=== PATIENT | male | born 2005 | race Caucasian/White ===

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

== ENCOUNTER 2024-09-10 15:46 | Emergency (ER) | payer OTHER, SELFPAY ==
[2024-09-10 15:46] VITALS: BP 146/77; PULSE 77; RESP 18; TEMP 36.4; O2SAT 99; BMI 24.7
--- NOTE | 2024-09-10 16:03 | EX.ED.VIS.EY ---
HPI History of Present Illness Chief Complaint: Eye Problem Informant: patient Narrative Narrative: Sent from urgent care concerns for metal to the left eye. Patient dates occurred at work yesterday. He took a safety goggles briefly another coworker was grinding when it to his eye. Similar issue a year ago had rust ring which required removal from eye doctor. He wears contacts however none currently. He has near vision. Reports there was attempted removal Q-tip after numbness at urgent care. Prior similar symptoms: Yes PFSH PFSH Medical History Acute pharyngitis, unspecified Medical History no medical history Allergy/AdvReac Type Severity Reaction Status Date / Time No Known Allergies Allergy Verified 09/10/24 15:46 Family History no significant family his Surgical History no surgical history Social History Smoking Status: Never smoker ROS ROS ED Constitutional Constitutional ED: Denies fever(s) Eyes Eyes: Reports blurry vision Cardiovascular Cardiovascular: Denies chest pain Respiratory/Chest Respiratory/Chest: Denies cough Gastrointestinal Gastrointestinal: Denies diarrhea or vomiting Musculoskeletal Musculoskeletal: Denies none Integumentary Denies rash or wounds Neurologic Neurologic: Denies weakness EXAM Physical Exam Const Vital Signs: 09/10/24 15:46 Temperature 97.6 F L Temperature Source Oral Pulse Rate 77 Respiratory Rate 18 Blood Pressure 146/77 H Blood Pressure Mean 100 Pulse Ox 99 Positive well nourished and well developed General Appearance ED: well developed HEENT normocephalic and atraumatic Eyes Eyes Narrative: Patient has acuity 20/25 OU, 20/30 OD, 20/30 OS. Moist Q-tip when on the lid margins eyelid everted no foreign bodies noted. Slit-lamp examination noted corneal defect mid cornea towards 9 o'clock position with no residual rust ring. General Eye ED: Yes normal appearance of both eyes Neck full ROM Resp normal respiratory effort and normal air movement Cardio regular rate and regular rhythm GI soft to palpation Extremity normal to inspection and full ROM Neuro oriented x3 Skin no rashes or lesions noted and no wounds MDM MDM MDM Narrative Medical decision making narrative: Interventions / MDM: Differential diagnosis: Residual rust ring left cornea, corneal abrasion Diagnosis considered but do not suspect: N/A My EKG interpretation: N/A Imaging independently reviewed and interpreted by myself: N/A External documents reviewed: N/A Test considered but not ordered:N/A ED course: Nontoxic vision acuity stable. Slit-lamp examination appears corneal defect from removal of foreign body there is residual rust ring near the 9 o'clock position mid cornea. Started on your erythromycin ointment twice a day. Referred to ophthalmology for further treatment with his rust ring. All questions were answered. Re-evaluation: stable Disposition discussed with patient/family/significant other: Patient Case discussed with consulting clinician: N/A This note was generated with [employer] dictation software. It may contain incorrect words, spelling, and punctuation that were not noted in checking the note before signing. Discharge Plan Triage Chief Complaint: Eye Problem ED Provider: Kasi Tobar Dx/Rx/DC Orders Clinical Impression: Corneal rust ring of left eye, Abrasion, corneal, Corneal foreign body with residual material Instructions: ED Corneal Abrasion, ED RUST RING Primary Care Provider: Care Physician,No Primary Referrals: Geoffrey Johnston MD [Med Staff - Active Staff] - 2 Days NOT,DEFINED [Non-Staff] - Activity Restrictions/Additional Instructions: You have residual rust ring evaluated with abrasion from procedure at urgent care. Use antibiotic ointment twice a day call for follow-up on Thursday with ophthalmology for additional treatment for your residual rust ring. Print Language: Nigerian Disposition Disposition: Home, Self Care Discharge Date/Time: 09/10/24 16:33
[2024-09-10] MEDS: Erythromycin Ophthalmic (NSY) 1 GM OPTH.TUBE 1 APPLIC LEFT EYE (16:28)
[2024-09-10 16:33] VITALS: BP 146/77; PULSE 77; RESP 18; TEMP 36.4; O2SAT 99
--- OUTSIDE RECORDS SUMMARY | 2024-09-10 16:34 | XMS RPT_ITS | CCD ---
Author Organization [facility] Care Team Providers Care Pmo Consultant Name Role Phone Parrish Belcher Attending Floyd Tomas Attending Parrish Grande Attending PARRISH Moraes MD Primary Care Physician DR MARIA DOLORES STOUT DO Attending PARRISH Gutierrez MD Primary Care Unavailable PARRISH VASQUEZ MD Primary Care Unavailable DR MARIA DOLORES STOUT DO Attending Jordin holloway Problems Active Problems Problem Classification Problem Date Documented Da te Episodic/Chronic Disorders usually diagnosed in infancy, childhood, or adolescence (2 sources) Chronic motor tic disorder Onset: 11-11-2012 10-29-2018 Chronic Unclassified (2 sources) Child examination finding Onset: 09-30-2010 10-29-2018 Past or Other Problems Problem Classification Problem Date Documented Da te Episodic/Chronic Malaise and fatigue (1 source) Other fatigue; Translations: [R53.83 - Other fatigue] Onset: 2021 Episodic Other upper respiratory infections (1 source) Acute pharyngitis, unspecified; Translations: [J02.9 - Acute pharyngitis, unspecified] Onset: 2021 Episodic Results Test Name Value Interpretation Reference Range Facil ity XR FOOT MINIMUM 3 VIEWS LEFT on 02-18-2023 XR FOOT MINIMUM 3 VIEWS LEFT ORIGINAL EXAMINATION: THREE XRAY VIEWS OF THE LEFT FOOT02/16/2023 6:38 pm COMPARISON: None available HISTORY: ORDERING SYSTEM PROVIDED HISTORY: Reason for Exam: left foot pain FINDINGS: No acute fracture or dislocation is identified. Bony alignment is maintained. The joint spaces are maintained. No suspicious osseous lesions. No large volume joint effusion. The soft tissues are unremarkable. IMPRESSION: No acute radiographic findings. I have personally reviewed the images of this examination and agree with the resident's findings and interpretation. Interpreted by: Bethel Delgado MD Preliminary Report By: Lissett Broderick Electronically signed By Bethel Delgado MD Dictated Date: 02/18/2023 8:49:38 AM Prelim Date: 02/18/2023 8:59:10 AM Sign Date: 02/18/2023 8:59:10 AM Ordering Provider: MARIA DOLORES Serna [facility]) XR ANKLE MINIMUM 3 VIEWS LEF Ton 02-16-2023 XR ANKLE MINIMUM 3 VIEWS LEFT ORIGINAL EXAMINATION: THREE XRAY VIEWS OF THE LEFT ANKLE 02/16/2023 4:01 pm COMPARISON: None. HISTORY: ORDERING SYSTEM PROVIDED HISTORY: Reason for Exam: pain FINDINGS: The left ankle mortise is preserved. No acute fracture, dislocation or radiopaque foreign bodies are seen about the left ankle. IMPRESSION: 1. No acute osseous abnormality of the left ankle. Interpreted by: Ham Shelton MD Preliminary Report By: Ham Shelton MD Electronically signed By Ham Shelton MD Dictated Date: 02/16/2023 4:02:33 PM Prelim Date: 02/16/2023 4:02:47 PM Sign Date: 02/16/2023 4:02:47 PM Ordering Provider: MARIA DOLORES STOUT [facility]) Urgent Care Visit Reporton 0 05-02-2022 Urgent Care Visit Report [facility] [address] [place] [address] [address] [place] [id number] OFFICE VISIT Date of Service: 05/02/22 MR#: [id number] Acct: [id number] Name: ENRIQUE STORM Rep #: [id number] : 2005 Provider: SOL Brown Age/Sex: 16/M [place] [facility] Status: Signed Intake Vital Signs 05/02/22 17:29 Height 6 ft 2 in Weight: 184 lb BMI 23.6 BP 130/82 Blood Pressure Location Lt brachial Position Sitting Respiration 15 Pulse 82 Pulse Source Monitor Temp 98.4 F Temp Source Temporal Pulse Oximetry (%) 98 Oxygen Delivery Method room air Intake Visit Reasons: INFECTED TOENAIL LT BIG TOE Allergies No Known Allergies Allergy (Unverified 05/02/22 17:30) Medications cephalexin 500 mg capsule 500 mg PO Q12H 10 days #20 caps 05/02/22 [Rx Confirmed 05/02/22] [facility] Medical History Acute pharyngitis, unspecified HPI HPI Details: ENRIQUE STORM, is a 16 M who presents to the office today for complaint of ingrown toenail left great toe with redness and pain. Patient states that he knowingly cut his toenail too short and then pulled a part of his nail off. He states that the pain has worsened over the past 24 to 36 hours. He denies numbness, tingling or loss range of motion to the toe or foot. No fever, chills, sweats. No nausea, vomiting or diarrhea. No other associated symptoms or alleviating/aggravating factors. ROS Const Constitutional: No other (As above) Exam Const General: cooperative and healthy appearing Skin General: no rashes or lesions noted Neuro General: patient alert and CN's II-XI intact bilaterally Extrem Other: Ingrown toenail on both medial and lateral portion of the left great toe with erythema and soft tissue swelling. No drainage or warmth to palpation. No extending erythema or streaking. Psych Appearance: grossly normal Mental Status: mental status grossly normal Coding Level of Care Code Off vis,est,level 3 Diagnoses Ingrown left greater toenail L60.0 Assessment and Plan Assessment and Plan (1) Ingrown left greater toenail: Status: Acute Medications: New cephalexin 500 mg PO Q12H 10 days 20 caps 0RF Plan Keflex as prescribed today. Patient also advised to use warm Epsom salt soaks and to cut his toenails straight across instead of cutting them as short as possible. Patient advised to follow-up with podiatry in 10 to 14 days if no better or sooner if worse. Patient advised of other symptomatic management techniques as well as potential red flags and when appropriate to report to the ED. Patient verbalized understanding and agreement with all the above. 05/02/22 1809 Date Floyd Davidson Signature: Date (if applicable) CC: Normal [facility] Culture, R/O Strep Aon 05-19 CUSTREPA No Streptococcus manolo up A isolated. Culture, R/O Strep A * This cultures intended use is to screen for Beta Streptococcus A only. All other pathogens and potential pathogens will not be screened for or reported. If a complete workup of all potential pathogens is indicated an order for a routine throat culture is required. Normal [facility] Comment on above: Performed By: #### M100.010 #### [facility] [address] [place], [place], [id number] Urgent Care Visit Reporton 0 05-16-2021 Urgent Care Visit Report [facility] [address] [place] [address] [address] [place], [place] [address] OFFICE VISIT Date of Service: 05/16/21 MR#: [id number] Acct: [id number] Name: ENRIQUE STORM Rep #: [id number] : 2005 Provider: SOL gaytan Age/Sex: 15/M [place] [facility] Status: Signed Intake Vital Signs 05/16/21 08:52 Height 6 ft 2 in Weight: 151 lb BMI 19.3 BP 118/74 Blood Pressure Location Lt brachial Position Sitting Respiration 16 Pulse 78 Pulse Source Monitor Temp 98.6 F Temp Source Temporal Pulse Oximetry (%) 98 Oxygen Delivery Method room air Intake Visit Reasons: SORE THROAT Allergies No Known Allergies Allergy (Unverified 05/16/21 08:53) [facility] Medical History (Updated 05/16/21 @ 10:04 by SOL Galdamez) Acute pharyngitis, unspecified HPI HPI Details: ENRIQUE STORM, is a 15 M who presents to the office today for evaluation of 3 to 4-day history of progressive worsening sore throat, with chills (unknown if having fever), white exudate on tonsillar pillars, swollen anterior cervical lymph nodes, and no cough described by patient. No complaints of headache or myalgias or loss of taste/smell or congestion/runny nose or nausea/vomiting/diarrhea . Mom notes patient has been taking ibuprofen and acetaminophen to assist with symptoms, which she says is rare for him as he typically takes no medication. No other associated symptoms and no other alleviating/aggravating factors. ROS Const Constitutional: No other (As above) Exam Const General: cooperative, healthy appearing, uncomfortable and no acute distress Nutritional Appearance: average body habitus and well nourished Orientation: alert, awake and oriented x3 HENMT Head: normal to inspection Ears: hearing grossly normal bilaterally, external ears normal, TM's normal bilaterally and EAC's normal Nose: external nose normal, nares normal, septum normal and no nasal discharge Face and sinus: normal facial exam and sinuses nontender Mouth: oral mucosae normal, lip normal, tongue normal and moist mucous membranes Throat: posterior oropharynx normal, uvula midline, abnormal tonsil on the right exudates and bilaterally erythema and no postnasal drainage Eyes General: appearance normal, both eyes and all related structures Neck Neck: normal visual inspection, full ROM, no meningeal signs, supple and lymphadenopathy (bilateral anterior cervical node swelling/tender to palpation) Neck mass: No Thyroid: thyroid normal Chest Chest palpation inspection: normal inspection of the chest Resp Effort Inspection: normal respiratory effort, able to speak in complete sentences, symmetric chest movement and no cough Auscultation: Bilateral: Clear to Auscultation Cardio Palpation: normal PMI Rate: regular rate Rhythm: regular rhythm Heart Sounds: S1 normal, S2 normal, no gallops, no murmurs and no rubs Pulses: radial pulses present GI Inspection: normal to inspection Palpation: soft and no hepatosplenomegaly Skin General: no rashes or lesions noted Neuro General: patient alert, patient awake, patient oriented x3 and gait normal Cognition: normal cognition Speech: speech normal Gait: normal gait Motor: muscle tone normal throughout Sensory Exam: no sensory deficits noted Psych Appearance: grossly normal Mental Status: mental status grossly normal Mood: congruent mood Affect: normal affect Speech and Movement: speech and movement normal Attitude: cooperative Thought Process: normal Thought Content: normal Judgment: judgment good Results POC Rapid Strep A Office Rapid Strep A Negative Last Edit by Maura Tony on 05/16/21 08:59 POC Mononucleosis Office Mononucleosis Negative Last Edit by Maura Tony on 05/16/21 09:16 Coding Level of Care Code Off vis,new,level 2 Diagnoses Acute pharyngitis, unspecified J02.9 Assessment and Plan Assessment and Plan (1) Acute pharyngitis, unspecified: Status: Acute Orders: Orders: POC Rapid Strep A Today Culture, R/O Strep A Today Plan - Parrish HORTON PA: POC rapid strep and Monospot screening in office today, both of which were negative; throat culture sent to lab for further evaluation.. Copy of results offered to patient. Supportive measures as instructed today. Follow-up with PCP in 5 to 7 days should symptoms not improve, ED sooner should symptoms worsen or any other concerns develop. Patient states acknowledging understanding all the above. This note was generated with [email or web address] dictation software. It may contain incorrect words, spelling, and punctuation that were not noted in checking the note before signing. Plan Details Other Orders: Orders: POC Mononucleosis Today R53.83 05/16/21 1004 Date (more content not included)... Normal [facility] Encounters Encounter Date Encounter Type Care Provider Facility Start: 02-16-2023 End: 02-17-2023 ambulatory PARRISH VASQUEZ MD Facility:B Start: 02-16-2023 End: 02-16-[address] MARIA DOLORES STOUT DO [facility] Start: 02-16-2023 End: 02-17-[address] MARIA DOLORES STOUT DO Facility:[facility] Start: 02-16-2023 End: 02-16-[address] MARIA DOLORES STOUT DO [facility] Start: 05-02-2022 End: 05-02-2022 ambulatory Floyd [place] [place]: 05-16-2021 End: 05-17-2021 ambulatory Parrish HORTON Facility:[facility] Start: 05-16-2021 End: 05-16-2021 ambulatory Parrish [place] [place]izations Immunization Date Immunization Notes Care Provider Марина swartz 10-18-2021 SARS-CoV-2 mRNA (tozinameran) vaccine DR MARIA DOLORES STOUT DO [facility] Comment on above: Result Comment: Prema Danielson. 0.3mL HERMINIA 11-02-2018 meningococcal oligosaccharide (groups A, C, Y and W-135) diphtheria toxoid conjugate vaccine (MCV4O); Translations: [Menveo] DR MARIA DOLORES STOUT DO [facility] 11-02-2018 tetanus toxoid, redu maurizio diphtheria toxoid, and acellular pertussis vaccine, adsorbed; Translations: [Boostrix (Tdap)] DR MARIA DOLORES STOUT DO [facility] 07-03-2009 diphtheria, tetanus toxoids and acellular pertussis vaccine, unspecified formulation DR MARIA DOLORES STOUT DO [facility] 07-03-2009 measles/mumps/rubell a virus vaccine DR MARIA DOLORES STOUT DO [facility] 07-03-[address], inactivated [address] MARIA DOLORES STOUT DO [facility] 07-03-[address] Ranjith STOUT DO [facility] 03-19-2007 diphtheria, tetanus toxoids and acellular pertussis vaccine, unspecified formulation DR MARIA DOLORES STOUT DO [facility] 03-19-2007 haemophilus influenz ae type b conjugate and Hepatitis B vaccine DR MARIA DOLORES STOUT DO [facility] 03-19-2007 pneumococcal conjuga te vaccine, [address] MARIA DOLORES STOUT DO [facility] 12-22-2006 influenza virus vacc ine, unspecified formulation DR MARIA DOLORES STOUT DO [facility] 12-01-2006 hepatitis A vaccine, pediatric dosage, unspecified formulation DR MARIA DOLORES STOUT DO [facility] 12-01-2006 pneumococcal conjuga te vaccine, [address] MARIA DOLORES STOUT DO [facility] 12-01-[address] Ranjith STOUT DO [facility] 02-17-2006 measles/mumps/rubell a virus vaccine DR MARIA DOLORES STOUT DO [facility] 07-21-2005 diphtheria, tetanus toxoids and acellular pertussis vaccine, unspecified formulation DR MARIA DOLORES STOUT DO [facility] 07-21-2005 haemophilus influenz ae type b conjugate and Hepatitis B vaccine DR MARIA DOLORES STOUT DO [facility] 07-21-2005 hepatitis B pediatri c vaccine DR MARIA DOLORES STOUT DO [facility] 07-21-2005 poliovirus vaccine, inactivated DR MARIA DOLORES STOUT DO [facility] 04-16-2005 diphtheria, tetanus toxoids and acellular pertussis vaccine, unspecified formulation DR MARIA DOLORES STOUT DO [facility] 04-16-2005 haemophilus influenz ae type b conjugate and Hepatitis B vaccine DR MARIA DOLORES STOUT DO [facility] 04-16-2005 hepatitis B pediatri c vaccine DR MARIA DOLORES STOUT DO [facility] 04-16-2005 pneumococcal conjuga te vaccine, [address] MARIA DOLORES STOUT DO [facility] 04-16-2005 poliovirus vaccine, inactivated DR MARIA DOLORES STOUT DO [facility] 2004 diphtheria, tetanus toxoids and acellular pertussis vaccine, unspecified formulation DR MARIA DOLORES STOUT DO [facility] 2004 haemophilus influenz ae type b conjugate and Hepatitis B vaccine DR MARIA DOLORES STOUT DO [facility] 2004 hepatitis B pediatri c vaccine DR MARIA DOLORES STOUT DO [facility] 2004 pneumococcal conjuga te vaccine, [address] MARIA DOLORES STOUT DO [facility] [address], [address] MARIA DOLORES STOUT DO [facility] Payers Date Payer Category Payer Self-pay 2021 Unknown [id number] 1965 Unknown [id number] 2.16.8 [id number] 1965 Unknown [id number] 2.16.8 [id number] Unknown [id number] 2.16.8 [id number] Unknown [id number] 2.16.8 [id number] Unknown [id number] 2.16.8 [id number] Social History Date Type Detail Facility Start: 10-29-2018 Tobacco smoking status Never s moked tobacco (finding) [facility] Comment on above: no smoke exposure Sex Assigned At Male [facility] Clinical Note 02-16-2023 Note Date & Type Note Facility 02-16-2023 Note ORIGINAL EXAMINATION: THREE XRAY VIEWS OF THE LEFT ANKLE 02/16/2023 4:01 pm COMPARISON: None. HISTORY: ORDERING SYSTEM PROVIDED HISTORY: Reason for Exam: pain FINDINGS: The left ankle mortise is preserved. No acute fracture, dislocation or radiopaque foreign bodies are seen about the left ankle. IMPRESSION: 1. No acute osseous abnormality of the left ankle. Interpreted by: Ham Shelton MD Preliminary Report By: Ham Shelton MD Electronically signed By Ham Shelton MD Dictated Date: 02/16/2023 4:02:33 PM Prelim Date: 02/16/2023 4:02:47 PM Sign Date: 02/16/2023 4:02:47 PM Ordering Provider: MARIA DOLORES STOUT [facility] Evaluation + Plan note 02-16-2023 Radiology Note Date & Type Note Facility 02-16-2023 Evaluation + Plan note Future Scheduled TestsXR Foot Minimum 3 Views Left 02/16/23 [facility] Hospital course Narrative Note Date & Type Note Facility Hospital course Narrative No data available for this section [facility] Hospital Discharge instructions Note Date & Type Note Facility Hospital Discharge instructions No data available for this section [facility] Progress note Note Date & Type Note Facility Progress note No data available for this section [facility] Summary Purpose Family History No Family History Records Found No data available for this section No data available for this section No Family History Records Found Advance Directives No Advanced Directives Records FoundNo Advanced Directives Records Found Additional Source Comments (unrecognized sect ion and content) No Status Records FoundNo Status Records Found INFORMATION SOURCE (unrecogn ized section and content) DATE CREATED AUTHOR 05/04/2022 [facility] DATE CREATED AUTHOR AUTHOR'S ORGANIZ ATION 02/19/2023 [facility] ([place]) Patient Care team informatio n (unrecognized section and content) Care Team Personnel Name: PARRISH VASQUEZ MD Position: P4 Physician - Primary Care Member Role: Primary Care Physician Address: Address: [address] [place] [id number] [place] [address] Care Team Related Persons Name: DARYL STORM Address: Home [address] [place] [phone] Address: Temporary [address] [place] [phone] Care Team Personnel Name: PARRISH VASQUEZ MD Position: P4 Physician - Primary Care Member Role: Primary Care Physician Address: Address: [address] [place] [id number] [place] [address] Care Team Related Persons Name: DARYL STORM Address: Home [address] [place] [phone] Address: Temporary [address] [place], [place] [id number] FOR RECORDS PERTAINING TO PATIENTS WHO ARE OR HAVE BEEN ENROLLED IN A CHEMICAL DEPENDENCY/SUBSTANCEABUSE PROGRAM, SOME INFORMATION MAY BE OMITTED. This clinical summary was aggregated from multiple sources. Caution should be exercised in using it in the provision of clinical care. This summary normalizes information from multiple sources, and as a consequence, information in this document may materially change the coding, format and clinical context of patient data. In addition, data may be omitted in some cases. CLINICAL DECISIONS SHOULD BE BASED ON THE PRIMARY CLINICAL RECORDS. [facility], [facility]. provides no warranty or guarantee of the accuracy or completeness of information in this document.
== END 2024-09-10 16:33 | disposition home or self-care (01) ==
LOC: ED 16:32
PROVIDERS: Emergency Provider Emergency Medicine; Visit Provider Emergency Medicine
DX: T15.02XA Foreign body in cornea, left eye, initial encounter (principal); W44.E0XA Non-magnetic metal object unspecified, entering into or through a natural orifice, initial encounter; Y99.0 Civilian activity done for income or pay; Z97.3 Presence of spectacles and contact lenses
CPT/HCPCS: 99283